=== PATIENT | male | born 1985 | race Two or more races ===

== ENCOUNTER 2017-04-26 08:02 | Emergency (ER) | payer OTHER ==
[2017-04-26 08:23] VITALS: TEMP 98.2; BMI 27.6
[2017-04-26] MEDS ORDERED: ONDANSETRON 4 MG/2 ML VIAL IVPUSH ONE (08:36)
[2017-04-26] MEDS ORDERED: SODIUM CHLORIDE 1,000 ML IV STA (08:36)
[2017-04-26] MEDS ORDERED: PANTOPRAZOLE SODIUM 40 MG in SODIUM CHLORIDE 100 ML IVPB ONE (08:39)
[2017-04-26] MEDS ORDERED: PANTOPRAZOLE SODIUM 100 ML IVPB ONE (08:55)
[2017-04-26] MEDS ORDERED: ONDANSETRON 4 MG/2 ML VIAL ONE (08:55)
--- NOTE | 2017-04-26 08:57 | PDOC ---
History of Present Illness - General Chief Complaint: Vomiting/Diarrhea Stated Complaint: VOMITING Time Seen by Provider: 04/26/17 08:33 History Source: Patient Exam Limitations: No Limitations - History of Present Illness Travel History: No Initial Comments: 04/26/17 08:57 31-year-old male with history of hypertension and kidney transplant 2 currently on tacromilus presents to the ED with complaints of sudden onset of nausea followed by vomiting and diarrhea. Patient states symptoms began around 2 :30 and have continued since. Patient currently denies headache, dizziness but does state feels dehydrated. Patient denies lower abdominal pain but does complain of epigastric pain. Patient denies recent travel, recent illness or recent change in medications. Patient states last night had some chicken he purchased from the store and then prepared it but states did not wash his hands after handling the raw chicken and then he ate. Patient denies recent sick contacts. Timing/Duration: reports: intermittent Quality: reports: moderate, burning, cramping, sharpness Abdominal Pain Onset Location: reports: epigastric Pain Radiation: reports: no radiation Activities at Onset: reports: none Aggravating Factors: improves with: None Alleviating Factors: improves with: None Past History - Past Medical History Allergies/Adverse Reactions: Allergies Allergy/AdvReac Type Severity Reaction Status Date / Time No Known Allergies Allergy Verified 04/26/17 08:16 Home Medications: Ambulatory Orders Amlodipine Besylate 5 mg PO BID 04/26/17 Carvedilol 25 mg PO BID 04/26/17 Cholecalciferol (Vitamin D3) [Vitamin D3] 1,000 unit PO HS 04/26/17 Fenofibrate Nanocrystallized [Fenofibrate] 48 mg PO HS 04/26/17 Mycophenolate Mofetil 1,000 mg PO BID 04/26/17 Prednisone 5 mg PO DAILY 04/26/17 Tacrolimus [Astagraf Xl] 0.5 mg PO BID 04/26/17 HTN: Yes Other medical history: KIDNEY FAILURE, TRANSPLANT X 2 - Immunization History Immunization Up to Date: Yes - Suicide/Smoking/Psychosocial Hx Smoking History: Never smoked Have you smoked in the past 12 months: No Hx Alcohol Use: No Drug/Substance Use Hx: No Substance Use Type: None Patient Lives Alone: No Lives with/in: spouse/SO Review of Systems - Review of Systems Able to Perform ROS?: Yes Constitutional: Yes: Symptoms Reported, Weakness HEENTM: No: Symptoms Reported Respiratory: No: Symptoms reported Cardiac (ROS): No: Symptoms Reported ABD/GI: Yes: Diarrhea, Nausea, Vomiting, Abdominal cramping : No: Symptoms Reported Musculoskeletal: No: Symptoms Reported Integumentary: No: Symptoms Reported Neurological: Yes: Weakness. No: Dizziness *Physical Exam - Vital Signs Last Vital Signs Temp Pulse Resp BP Pulse Ox 98.2 F 81 20 131/83 100 04/26/17 08:17 04/26/17 08:17 04/26/17 08:17 04/26/17 08:17 04/26/17 08:17 - Physical Exam General Appearance: Yes: Nourished, Appropriately Dressed. No: Apparent Distress HEENT: positive: Pharynx Normal. negative: Pale Conjunctivae Neck: positive: Supple Respiratory/Chest: positive: Lungs Clear, Normal Breath Sounds. negative: Respiratory Distress, Accessory Muscle Use Cardiovascular: positive: Regular Rhythm, Regular Rate. negative: Murmur Gastrointestinal/Abdominal: positive: Soft, Tenderness (epigastric). negative: Normal Bowel Sounds, Distended, Guarding, Rebound, Mass Extremity: positive: Normal Capillary Refill. negative: Pedal Edema Integumentary: positive: Normal Color, Warm, Moist Neurologic: positive: Motor Strength 5/5 (ambulatory) ED Treatment Course - LABORATORY CBC & Chemistry Diagram: 04/26/17 09:03 04/26/17 09:03 Medical Decision Making - Medical Decision Making 04/26/17 09:08 Patient was sudden onset of nausea vomiting diarrhea this morning at 2:30 AM. Patient exam have epigastric tenderness and states did have chicken he brought at a supermarket then prepared it. Apparently did not wash his hands. Patient states eating around 10 PM and went to bed. Patient concerning for gastroenteritis versus versus electrolyte imbalance. Patient ordered for labs, urine, antiemetics, IV fluids and ppi 04/26/17 12:30 Laboratory Tests 04/26/17 04/26/17 04/26/17 09:03 09:03 09:03 WBC 12.9 H Hgb 15.2 D Hct 46.6 D MCV 79.3 L Plt Count 214 Neutrophils % 88.8 H Sodium 137 Potassium 4.0 Chloride 102 Carbon Dioxide 25 Anion Gap 10 BUN 15 D Creatinine 1.1 D Creat Clearance w eGFR > 60 Random Glucose 329 H* D Magnesium 1.8 Total Bilirubin 0.6 D AST 26 ALT 63 D Lipase 04/26/17 09:06 WBC Hgb Hct MCV Plt Count Neutrophils % Sodium Potassium Chloride Carbon Dioxide Anion Gap BUN Creatinine Creat Clearance w eGFR Random Glucose Magnesium Total Bilirubin AST ALT Lipase 106 Awaiting urine specimen. Patient states feeling better. 04/26/17 14:41 Laboratory Tests 04/26/17 13:55 Urine Glucose (UA) 3+ H Urine Blood 1+ H Urine Nitrite Negative Urine Urobilinogen Negative *DC/Admit/Observation/Transfer Diagnosis at time of Disposition: Nausea and vomiting Qualifiers: Vomiting type: unspecified Vomiting Intractability: non-intractable Qualified Code(s): R11.2 - Nausea with vomiting, unspecified Diarrhea Qualifiers: Diarrhea type: unspecified type Qualified Code(s): R19.7 - Diarrhea, unspecified - Discharge Dispostion Disposition: HOME Condition at time of disposition: Improved - Referrals Referrals: STAFF,NOT ON [Primary Care Provider] - - Patient Instructions Printed Discharge Instructions: Nausea and Vomiting-Adult, DI for Diarrhea and Traveler's Diarrhea -- Adult Additional Instructions: Follow bland diet for the next 3 days and drink small sips of fluid throughout the day. Please take Zofran as needed for nausea and if symptoms worsen despite above recommendations please return to the nearest emergency room.
[2017-04-26 09:14] LABS: BASOPHIL 0.3 % (0-2.0); EOSINOPHIL 0.7 % (0-4.5); MCH 25.9 pg (25.7-33.7); MCHC 32.6 g/dl (32.0-35.9); MEAN CELL VOLUME 79.3 fl (80-96); MEAN PLT VOLUME 8.3 fl (7.5-11.1); NEUTROPHILS 88.8 % (42.8-82.8); PLATELET COUNT 214 K/MM3 (134-434); RDW 14.5 % (11.9-15.9); WHITE BLOOD COUNT 12.9 K/mm3 (4.0-10.0)
[2017-04-26 09:52] LABS: ALBUMIN 4.3 g/dl (3.4-5.0); ALK PHOS 184 U/L (45-117); ANION GAP 10 (8-16); BILIRUBIN,TOTAL 0.6 mg/dL (0.2-1.0); CALCIUM 9.4 mg/dL (8.5-10.1); CO2 25 mmol/L (21-32); CREATININE 1.1 mg/dL (0.7-1.3); SGOT/AST 26 U/L (15-37); SGPT/ALT 63 U/L (12-78); TOT PROT 7.4 g/dl (6.4-8.2)
[2017-04-26 10:34] LABS: GLUCOSE,RANDOM 329 mg/dL (74-106)
--- NOTE | 2017-04-26 10:38 | EKG ---
Test Reason : Blood Pressure : / mmHG Vent. Rate : 077 BPM Atrial Rate : 077 BPM P-R Int : 142 ms QRS Dur : 086 ms QT Int : 362 ms P-R-T Axes : 043 035 123 degrees QTc Int : 409 ms NORMAL SINUS RHYTHM T WAVE ABNORMALITY, CONSIDER LATERAL ISCHEMIA ABNORMAL ECG WHEN COMPARED WITH ECG OF 30-JUN-2015 19:36, NO SIGNIFICANT CHANGE WAS FOUND Confirmed by EDER BONNER MD ([id number]) on 04/26/2017 10:38:44 AM Referred By: Confirmed By:EDER BONNER MD
[2017-04-26 14:28] LABS: URINE APPEARANCE CLEAR; URINE BILIRUBIN NEGATIVE (NEGATIVE); URINE BLOOD 1+ (NEGATIVE); URINE COLOR LTYELLOW; URINE GLUCOSE (UA) 3+ (NEGATIVE); URINE KETONE NEGATIVE (NEGATIVE); URINE LEUK ESTERASE NEGATIVE (NEGATIVE); URINE NITRITE NEGATIVE (NEGATIVE); URINE PROTEIN NEGATIVE (NEGATIVE); URINE UROBILINOGEN NEGATIVE mg/dL (0.2-1.0)
[2017-04-26 14:59] VITALS: BP 126/77; PULSE 75
[2017-04-26 16:52] LABS: URINE RBC 1 /hpf (0-3)
== END 2017-04-26 14:59 | disposition home or self-care (01) ==
LOC: JER 08:02
PROC: 3E033GC Introduction of Other Therapeutic Substance into Peripheral Vein, Percutaneous Approach (ICD-10-PCS; principal; 2017-04-26)
PROC: 3E0337Z Introduction of Electrolytic and Water Balance Substance into Peripheral Vein, Percutaneous Approach (ICD-10-PCS; 2017-04-26)
DX: R19.7 Diarrhea, unspecified (principal); R11.2 Nausea with vomiting, unspecified; Z94.0 Kidney transplant status; I10 Essential (primary) hypertension
CPT/HCPCS: 36415; 80053; 81003; 81015; 83690; 83735; 85025; 87086; 93005; 93010; 99282-25

== ENCOUNTER 2018-08-18 07:25 | Inpatient (IN) | payer OTHER ==
[2018-08-18] MEDS ORDERED: SODIUM CHLORIDE 1,000 ML IV STA ×2 (07:39→08:54)
[2018-08-18] MEDS ORDERED: ACETAMINOPHEN 1000 MG/100 ML VIAL (NON FORMULARY) IVPB ONE (07:39)
[2018-08-18] MEDS ORDERED: ONDANSETRON 4 MG/2 ML VIAL IVPB ONE (07:40)
--- NOTE | 2018-08-18 07:45 | PDOC ---
History of Present Illness - General Chief Complaint: Nausea/Vomiting Stated Complaint: NAUSEA VOMITING Time Seen by Provider: 08/18/18 07:29 - History of Present Illness Initial Comments: 08/18/18 07:45 33 M with h/o ESRD s/p kidney transplant x 2, HTN, presenting to ED with N+V+D. Pt states that his symptoms started 2 days ago. Endorses subjective fevers but no measured temps. States that he is having about 20 episodes of diarrhea per day, as well as several episodes of NBNB emesis. Pt endorses lightheadedness and the feeling that he is going to faint but denies any syncopal episodes. Also endorses lower abdominal cramping. Denies any dysuria. Denies CP/SOB. States that he is still making normal amount of urine. Past History - Past Medical History Allergies/Adverse Reactions: Allergies Allergy/AdvReac Type Severity Reaction Status Date / Time No Known Allergies Allergy Verified 08/18/18 07:30 Home Medications: Ambulatory Orders Amlodipine Besylate 5 mg PO BID 04/26/17 Carvedilol 25 mg PO BID 04/26/17 Cholecalciferol (Vitamin D3) [Vitamin D3] 1,000 unit PO HS 04/26/17 Fenofibrate Nanocrystallized [Fenofibrate] 48 mg PO HS 04/26/17 Mycophenolate Mofetil 1,000 mg PO BID 04/26/17 Ondansetron HCl [Zofran] 4 mg PO TID PRN #12 tablet 04/26/17 Prednisone 5 mg PO DAILY 04/26/17 Tacrolimus [Astagraf Xl] 0.5 mg PO BID 04/26/17 COPD: No Diabetes: Yes HTN: Yes - Immunization History Immunization Up to Date: Yes - Suicide/Smoking/Psychosocial Hx Smoking History: Never smoked Have you smoked in the past 12 months: No Hx Alcohol Use: No Drug/Substance Use Hx: No Substance Use Type: None Review of Systems - Review of Systems Comments:: 08/18/18 07:49 GENERAL/CONSTITUTIONAL: + fevers, + lightheaded HEAD, EYES, EARS, NOSE AND THROAT: No change in vision. No ear pain or discharge. No sore throat. CARDIOVASCULAR: No chest pain, no shortness of breath, no loss of consciousness RESPIRATORY: No cough, wheezing, or hemoptysis. GASTROINTESTINAL: + abdominal pain + nausea, vomiting, and diarrhea. GENITOURINARY: No dysuria, frequency, or change in urination. MUSCULOSKELETAL: No joint or muscle swelling or pain. No neck or back pain. SKIN: No rash NEUROLOGIC: No vertigo, no change in strength/sensation. ENDOCRINE: No increased thirst. No abnormal weight change. HEMATOLOGIC/LYMPHATIC: No anemia, easy bleeding, or history of blood clots. ALLERGIC/IMMUNOLOGIC: No hives or skin allergy. *Physical Exam - Vital Signs Last Vital Signs Temp Pulse Resp BP Pulse Ox 98.4 F 121 H 18 95/72 99 08/18/18 07:30 08/18/18 07:30 08/18/18 07:30 08/18/18 07:30 08/18/18 07:30 - Physical Exam Comments: 08/18/18 07:50 "GENERAL: Awake, alert, and fully oriented, in no acute distress. HEAD: No signs of trauma EYES: PERRLA, EOMI, sclera anicteric, conjunctiva clear ENT: Auricles normal inspection, hearing grossly normal, nares patent, oropharynx clear without exudates. Moist mucosa NECK: Nontender, no stepoffs, Normal ROM, supple, no lymphadenopathy, JVD, or masses LUNGS: Breath sounds equal, clear to auscultation bilaterally. No wheezes, and no crackles HEART: Regular rate and rhythm, normal S1 and S2, no murmurs, rubs or gallops ABDOMEN: Soft, mild diffuse TTP, normoactive bowel sounds. No guarding, no rebound. No masses EXTREMITIES: Normal range of motion, no edema. No clubbing or cyanosis. No cords, erythema, or tenderness NEUROLOGICAL: Cranial nerves II through XII intact. 5/5 strength and sensation in all extremities, Normal speech, normal gait, normal cerebellar function SKIN: Warm, Dry, normal turgor, no rashes or lesions noted. Moderate Sedation - Procedure Monitoring Vital Signs: Procedure Monitoring Vital Signs Temperature 98.4 F 08/18/18 07:30 Pulse Rate 121 H 08/18/18 07:30 Respiratory Rate 18 08/18/18 07:30 Blood Pressure 95/72 08/18/18 07:30 O2 Sat by Pulse Oximetry (%) 99 08/18/18 07:30 ED Treatment Course - LABORATORY CBC & Chemistry Diagram: 08/18/18 07:40 08/18/18 07:40 - RADIOLOGY Radiology Studies Ordered: Category Date Time Status CHEST X-RAY PORTABLE* [RAD] Stat Radiology 08/18/18 07:38 Ordered Medical Decision Making - Critical Care Time Total Critical Care Time (minutes): 60 Critical Care Statement: The care of this patient involved high complexity decision making to prevent further life threatening deterioration of the patient 's condition and/or to evaluate & treat vital organ system(s) failure or risk of failure. - Medical Decision Making 08/18/18 08:02 33 M with h/o kidney transplant x2 on prednisone and tacro, presenting with subjective fevers, N+V+D, and abdominal pain. Pt hypotensive and tachycardic in ED, concerning for sepsis. Source unclear at this time. Will also w/u for rejection. - Labs, cultures - CXR, UA - US kidney txplant - Tacro level - IVF 08/18/18 08:14 EKG obtained showing sinus tachycardia with 1mm ST elevation in lead III, sub- mm elevation in II or aVF. + depressions in I and aVL. Does NOT meet STEMI criteria. Pt denies any chest pain/SOB. Suspect that EKG changes are 2/2 demand in the context of likely sepsis. 08/18/18 08:52 Troponin negative Lactate >3 Given immune compromised status, will cover broadly with vanc and zosyn No neutropenia *DC/Admit/Observation/Transfer Diagnosis at time of Disposition: Sepsis - Discharge Dispostion Decision to Admit order: Yes - Referrals - Patient Instructions - Post Discharge Activity - Attestations Physician Attestion: 08/18/18 11:03 I, Dr. Casey Steel MD, attest that this document has been prepared under my direction and personally reviewed by me in its entirety. I further attest, that it accurately reflects all work, treatment, procedures and medical decision -making performed by me.
[2018-08-18] MEDS ORDERED: ACETAMINOPHEN INJECTION 100 ML IVPB ONE (07:58)
[2018-08-18] MEDS ORDERED: ONDANSETRON 4 MG/2 ML VIAL ONE (07:58)
[2018-08-18 08:07] LABS: VENOUS PC02 44.8 mmHg (38-52); VENOUS PH 7.28 (7.32-7.42); VENOUS PO2 25.1 mmHg (28-48)
[2018-08-18 08:09] LABS: BASO % 0.2 % (0-2.0); HEMATOCRIT 51.3 % (35.4-49); HEMOGLOBIN 17.4 GM/dL (11.7-16.9); LYMPH % 7.1 % (8-40); MCH 27.7 pg (25.7-33.7); MCHC 33.9 g/dl (32.0-35.9); MEAN CELL VOLUME 81.7 fl (80-96); MONO % 5.2 % (3.8-10.2); NEUT % 87.5 % (42.8-82.8); PLATELET COUNT 281 K/MM3 (134-434); RBC 6.28 M/mm3 (4.00-5.60); RDW 14.7 % (11.9-15.9); WHITE BLOOD COUNT 12.1 K/mm3 (4.0-10.0)
[2018-08-18 08:38] LABS: INR 1.1 (0.83-1.09)
[2018-08-18 08:40] LABS: ACTIVATED PTT 36.9 SECONDS (25.2-36.5)
[2018-08-18] MEDS ORDERED: PIPERACILLIN/TAZOB 4.5 GM 4.5 GM/100 ML BAG IVPB ONE ×2 (08:51→08:58)
[2018-08-18] MEDS ORDERED: VANCOMYCIN 1 GRAM (PRE-DOCKED) 1,000 MG/250 ML BAG IVPB ONE ×2 (08:51→08:58)
[2018-08-18 09:45] LABS: ALK PHOS 94 U/L (45-117); ANION GAP 20 MMOL/L (8-16); BILIRUBIN,TOTAL 1.4 mg/dL (0.2-1); BLOOD UREA NITROGEN 42 mg/dL (7-18); CALCIUM 10.6 mg/dL (8.5-10.1); CHLORIDE 96 mmol/L (98-107); CO2 16 mmol/L (21-32); CREATININE 3.9 mg/dL (0.55-1.3); GLUCOSE,RANDOM 272 mg/dL (74-106); POTASSIUM 3.7 mmol/L (3.5-5.1); SGOT/AST 32 U/L (15-37); SGPT/ALT 56 U/L (13-61); SODIUM 132 mmol/L (136-145); TOT PROT 9.6 g/dl (6.4-8.2)
--- NOTE | 2018-08-18 11:10 | HP ---
CHIEF COMPLAINT: " Diarrhoea, nausea, vomiting" Metal Tile Setter: Dr. Javon Olsen HISTORY OF PRESENT ILLNESS: Patient is a 33 year old male presented to the ED with the chief complaint of " Diarrhoea, nausea, vomiting". As per the patient, he was apparently well until 2 days ago, ate Salami Sunday night, went to bed, woke up after 6 hours with high grade fever (not measured) associated with chills and sweating. Then he developed abdominal pain, located in the epigastric area, 5/10 in intensity, non radiating, crampy in nature. It was associated with watery diarrhoea, about 20 episodes, greenish in color, no blood, no mucus. He started to feel weak, tired hence came in to the ED for further evaluation. En route, had one episode of NBNB vomiting. No sick contacts. Denies chest pain, sob, cough, palpitation, abdominal pain, nausea or vomiting. Bladder habit normal. Decreased appetite. Patient reports he has a h/o ESRD from hypertension was on HD in 2004, had renal transplant in 2006, got rejected and got another renal transplant in 2015. Since then he has been on Prednisone and immunosuppresants without any issues. Patient states he saw his gasoline tractor operator at [place] last week and was recommended to continue same home medications. ER course was notable for: (1) Afebrile, hypotensive 90/ 53 mmHg, Tachycardic 121, leukocytosis of 12.1, Lactic acid 3.7 (2) Abdominal/Pelvis CT (transplant): No acute pathology (3) EKG: NSR (4) IV Fluids, IV Vancomycin Recent Travel: None PAST MEDICAL HISTORY: Hypertension, ESRD s/p Kidney transplant twice (2006/2015 ) on prednisone and immunosuppresants PAST SURGICAL HISTORY: As mentioned above Social History: Smoking:Denies Alcohol:Denies Drugs: Denies Family History: Non contributory Allergies No Known Allergies Allergy (Verified 08/18/18 07:30) HOME MEDICATIONS: Home Medications Medication Instructions Recorded Amlodipine Besylate 5 mg PO BID 04/26/17 Carvedilol 25 mg PO BID 04/26/17 Cholecalciferol (Vitamin D3) 1,000 unit PO HS 04/26/17 [Vitamin D3] Fenofibrate Nanocrystallized 48 mg PO HS 04/26/17 [Fenofibrate] Mycophenolate Mofetil 1,000 mg PO BID 04/26/17 Ondansetron HCl [Zofran] 4 mg PO TID PRN #12 tablet 04/26/17 Prednisone 5 mg PO DAILY 04/26/17 Tacrolimus [Astagraf Xl] 0.5 mg PO BID 04/26/17 REVIEW OF SYSTEMS CONSTITUTIONAL: Absent: fever, chills, diaphoresis, generalized weakness, malaise, loss of appetite, weight change HEENT: Absent: rhinorrhea, nasal congestion, throat pain, throat swelling, difficulty swallowing, mouth swelling, ear pain, eye pain, visual changes CARDIOVASCULAR: Absent: chest pain, syncope, palpitations, irregular heart rate, lightheadedness , peripheral edema RESPIRATORY: Absent: cough, shortness of breath, dyspnea with exertion, orthopnea, wheezing, stridor, hemoptysis GASTROINTESTINAL: Present: abdominal pain, abdominal distension, nausea, vomiting, diarrhea, Absent: constipation, melena, hematochezia GENITOURINARY: Absent: dysuria, frequency, urgency, hesitancy, hematuria, flank pain, genital pain MUSCULOSKELETAL: Absent: myalgia, arthralgia, joint swelling, back pain, neck pain SKIN: Absent: rash, itching, pallor HEMATOLOGIC/IMMUNOLOGIC: Absent: easy bleeding, easy bruising, lymphadenopathy, frequent infections ENDOCRINE: Absent: unexplained weight gain, unexplained weight loss, heat intolerance, cold intolerance NEUROLOGIC: Absent: headache, focal weakness or paresthesias, dizziness, unsteady gait, seizure, mental status changes, bladder or bowel incontinence PSYCHIATRIC: Absent: anxiety, depression, suicidal or homicidal ideation, hallucinations. PHYSICAL EXAMINATION Vital Signs - 24 hr 08/18/18 08/18/18 08/18/18 07:30 09:24 09:58 Temperature 98.4 F Pulse Rate 121 H Pulse Rate [ 108 H Apical] Respiratory 18 Rate Blood Pressure 95/72 Blood Pressure 90/53 L [Right Arm] O2 Sat by Pulse 99 Oximetry (%) GENERAL: Young male, lying in bed, looks sick, Awake, alert, and fully oriented , in no acute distress. EYES:EOM intact, no pallor or icterus. EARS, NOSE, THROAT: Ears normal. Dry mucous membranes. NECK: Supple, no JVD LUNGS: B/L breath sounds equal, no added sounds. HEART: Regular rate and rhythm, normal S1 and S2 without murmur. ABDOMEN: Surgical scar angelica well healed , Soft, nontender, no organomegaly. MUSCULOSKELETAL: Normal range of motion at all joints. No bony deformities or tenderness. No CVA tenderness. UPPER EXTREMITIES: 2+ pulses, warm, well-perfused. No cyanosis. No clubbing. No peripheral edema. LOWER EXTREMITIES: 2+ pulses, warm, well-perfused. No calf tenderness. No peripheral edema. NEUROLOGICAL: No facial droop. Cranial nerves II-XII intact. Normal speech. Gait not observed. PSYCHIATRIC: Cooperative. Good eye contact. Appropriate mood and affect. SKIN: Warm, dry, normal turgor, no rashes or lesions noted, normal capillary refill. Laboratory Results - last 24 hr 08/18/18 08/18/18 08/18/18 07:40 07:40 07:40 WBC 12.1 H RBC 6.28 H Hgb 17.4 H Hct 51.3 H MCV 81.7 MCH 27.7 MCHC 33.9 RDW 14.7 Plt Count 281 D MPV 8.0 Absolute Neuts (auto) 10.6 H Neutrophils % 87.5 H Lymphocytes % 7.1 L D Monocytes % 5.2 Eosinophils % 0.0 D Basophils % 0.2 Nucleated RBC % 0 PT with INR 13.00 INR 1.10 H PTT (Actin FS) 36.9 H VBG pH POC VBG pCO2 POC VBG pO2 Mixed VBG HCO3 Sodium Cancelled Potassium Cancelled Chloride Cancelled Carbon Dioxide Cancelled Anion Gap Cancelled BUN Cancelled Creatinine Cancelled Creat Clearance w eGFR Cancelled Random Glucose Cancelled Lactic Acid Calcium Cancelled Total Bilirubin Cancelled AST Cancelled ALT Cancelled Alkaline Phosphatase Cancelled Troponin I Total Protein Cancelled Albumin Cancelled Influenza A (Rapid) Influenza B (Rapid) 08/18/18 08/18/18 08/18/18 07:40 07:40 07:47 WBC RBC Hgb Hct MCV MCH MCHC RDW Plt Count MPV Absolute Neuts (auto) Neutrophils % Lymphocytes % Monocytes % Eosinophils % Basophils % Nucleated RBC % PT with INR INR PTT (Actin FS) VBG pH 7.28 L POC VBG pCO2 44.8 POC VBG pO2 25.1 L Mixed VBG HCO3 20.2 Sodium 132 L Potassium 3.7 Chloride 96 L Carbon Dioxide 16 L Anion Gap 20 H BUN 42 H Creatinine 3.9 H Creat Clearance w eGFR 17.68 Random Glucose 272 H Lactic Acid 3.7 H* Calcium 10.6 H Total Bilirubin 1.4 H AST 32 ALT 56 Alkaline Phosphatase 94 Troponin I < 0.02 Total Protein 9.6 H Albumin 5.0 Influenza A (Rapid) Influenza B (Rapid) 08/18/18 08/18/18 10:00 10:00 WBC RBC Hgb Hct MCV MCH MCHC RDW Plt Count MPV Absolute Neuts (auto) Neutrophils % Lymphocytes % Monocytes % Eosinophils % Basophils % Nucleated RBC % PT with INR INR PTT (Actin FS) VBG pH POC VBG pCO2 POC VBG pO2 Mixed VBG HCO3 Sodium Potassium Chloride Carbon Dioxide Anion Gap BUN Creatinine Creat Clearance w eGFR Random Glucose Lactic Acid 1.5 Calcium Total Bilirubin AST ALT Alkaline Phosphatase Troponin I Total Protein Albumin Influenza A (Rapid) Negative Influenza B (Rapid) Negative Abdominal/Pelvis CT: 1. Diffuse fatty infiltration of the liver. 2. Atrophic [place] kidneys with hyperdense left renal cyst. 3. Atrophic right renal transplant within the right hemipelvis. 4. Morphologically normal left renal transplant within the left hemipelvis. 5. No evidence of acute pathology within the abdomen or pelvis. Please see above discussion. ASSESSMENT/PLAN: Patient is a 33 year old male with significant past medical history of Hypertension, ESRD s/p Kidney transplant twice () on prednisone and immunosuppresants presented to the ED with the chief complaint of " Diarrhoea, nausea, vomiting". # Severe sepsis likely secondary to gastroenteritis Tachycardic 121, leukocytosis of 12.1, Lactic acid 3.7, diarrhoea x 20 episodes. Could have been aggravated when he ate Salami. Was given IV fluids in the ED and lactic acid improved with IV hydration. Lactic acid now 1.5 Was given IV Vanc in the ED Abd/Pelvis CT showed no acute pathology. Admit to Med-Surg/Inpatient Continue IV NS @ 100 mls/hr Start IV Flagyl 500mg Q8H Blood culture pending If worsening, will send stool studies. # ESRD s/p Kidney transplant twice () on prednisone and immunosuppresants Seen by his gasoline tractor operator last week, no change in current medications. Continue Fenofibrate 48 mg HS, Mofetil 1000 mg BID, Tacrolimus 0.5 mg BID and Prednisone 5 mg Daily Tacrolimus level pending. creatinine is 3.9, will repeat this afternoon, creatinine 1.1 in 2017. Creatinine level unknown since 2017 # Polycythemia H/H: 17.4/51.2 could be from dehydration. Likely to improve with IV fluids. Repeat CBC in AM # Elevated T. bili AST/ALT normal. Will repeat it in AM and Direct bili. If it is rising, would consider ultrasound of the liver. # Hypertension-was hypotensive on admission Likely from dehydration and gastroenteritis Continue Amlodipine 5mg BID starting this evening # FEN IV NS @ 100 mls/hr Electrolytes WNL Renal diet # Prophylaxis For DVT: On Heparin 5000 IU sq TID For GI: IV Protonix 40mg Daily # Code Status: Full Code # Dispo: Admit to Med/Surg. Duration of stay unknown. Illness, Investigation and Plan of care explained to the patient. He verbalized understanding. Case discussed with Dr. Marshall. Visit type - Emergency Visit Emergency Visit: Yes ED Registration Date: 08/18/18 Care time: The patient presented to the Emergency Department on the above date and was hospitalized for further evaluation of their emergent condition. - New Patient This patient is new to me today: Yes Date on this admission: 08/18/18 - Critical Care Critical Care patient: No
[2018-08-18] MEDS: SODIUM CHLORIDE 1,000 ML IV SCH ×4 (11:29→23:30)
--- NOTE | 2018-08-18 15:29 | PN ---
Teaching Attending Note Name of Resident: Sharlene Humphries ATTENDING PHYSICIAN STATEMENT I saw and evaluated the patient. I reviewed the resident's note and discussed the case with the resident. I agree with the resident's findings and plan as documented. SUBJECTIVE: OBJECTIVE: aaox3 s1 and s2 lungs CTA good air entyr abdominal tenderness noted. l ASSESSMENT AND PLAN: Patient is a 33 year old male with significant past medical history of Hypertension, ESRD s/p Kidney transplant twice () on prednisone and immunosuppresants presented to the ED with the chief complaint of " Diarrhoea, nausea, vomiting". # SIRS with sepsis likely secondary to gastroenteritis Was given IV fluids in the ED and lactic acid improved with IV hydration. Lactic acid now 1.5 Was given IV Vanc in the ED Admit to Med-Surg/Inpatient Continue IV NS @ 100 mls/hr Start IV metronidazole 500mg Q8H f/u with blood culture pending If worsening, will send stool studies. # ESRD s/p Kidney transplant twice () on prednisone and immunosuppresants Seen by his automotive customer experience advisor last week, no change in current medications. Continue Fenofibrate 48 mg HS, Mofetil 1000 mg BID, Tacrolimus 0.5 mg BID and Prednisone 5 mg Daily Tacrolimus level pending. creatinine is 3.9, will repeat in AM if it continues to rise, will request for renal consult. # Polycythemia H/H: 17.4/51.2 could be from dehydration. Likely to improve with IV fluids. Repeat CBC in AM # Elevated T. bili AST/ALT normal. Will repeat it in AM and Direct bili. If it is rising, would consider ultrasound of the liver. # Hypertension-was hypotensive on admission Likely from dehydration and gastroenteritis Continue Amlodipine 5mg BID starting this evening # FEN IV NS @ 100 mls/hr Electrolytes WNL Renal diet # Prophylaxis For DVT: On Heparin 5000 IU sq TID For GI: Not indicated Illness, Investigation and Plan of care explained to the patient. He verbalized understanding.
[2018-08-18] MEDS ORDERED: SODIUM CHLORIDE 1,000 ML IV SCH (15:40)
[2018-08-18 15:46] VITALS: BMI 27.9
[2018-08-18] MEDS: HEPARIN NA (PORCINE) 5,000 UNITS/ML 1ML VIAL SQ SCH ×2 (16:24→21:35)
[2018-08-18] MEDS: PANTOPRAZOLE SODIUM 40 MG VIAL IVPUSH SCH (16:24)
--- NOTE | 2018-08-18 16:28 | CON.NEP ---
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 He was seen by his faculty instructor last week and he had labs done 08/14 - Alcohol/Substance Use Hx Alcohol Use: No - Smoking History Smoking history: Never smoked Have you smoked in the past 12 months: No Home Medications - Allergies Allergies/Adverse Reactions: Allergies Allergy/AdvReac Type Severity Reaction Status Date / Time No Known Allergies Allergy Verified 08/18/18 07:30 - Home Medications Home Medications: Ambulatory Orders Amlodipine Besylate 5 mg PO BID 04/26/17 Carvedilol 25 mg PO BID 04/26/17 Cholecalciferol (Vitamin D3) [Vitamin D3] 1,000 unit PO HS 04/26/17 Fenofibrate Nanocrystallized [Fenofibrate] 48 mg PO HS 04/26/17 Mycophenolate Mofetil 1,000 mg PO BID 04/26/17 Ondansetron HCl [Zofran] 4 mg PO TID PRN #12 tablet 04/26/17 Prednisone 5 mg PO DAILY 04/26/17 Tacrolimus [Astagraf Xl] 0.5 mg PO BID 04/26/17 Nephrology Consult - Height Height: 5 ft 4 in - Weight Weight: 163 lb - BMI Body Mass Index (BMI): 27.9 - Lab Results CBC,BMP: CBC, BMP 08/18/18 07:40 08/18/18 07:40 Anion Gap: Anion Gap Anion Gap 20 MMOL/L (8-16) H 08/18/18 07:40 - Physical Examination Vital Signs: Vital Signs Temperature 99.9 F H 08/18/18 16:10 Pulse Rate 122 H 08/18/18 16:10 Respiratory Rate 24 H 08/18/18 16:10 Blood Pressure 128/73 08/18/18 16:10 O2 Sat by Pulse Oximetry (%) 96 08/18/18 15:55 Constitutional: Yes: Well Nourished, No Distress, Calm Eyes: Yes: WNL, Conjunctiva Clear, EOM Intact HENT: Yes: WNL, Atraumatic, Normocephalic Neck: Yes: WNL, Supple, Trachea Midline Respiratory: Yes: WNL, Regular, CTA Bilaterally Gastrointestinal: Yes: Soft, Tenderness (mild) Renal/: Yes: WNL Musculoskeletal: Yes: WNL Extremities: Yes: WNL Edema: No Integumentary: Yes: WNL Neurological: Yes: Lethargy Psychiatric: Yes: WNL, Alert, Oriented Assessment/Plan 33 y/o kidney transplant recipient x 3 years h/o esrd 2/2 HTN admitted with fever chills and diarrhea probable bowel infection profoundly dehydrated, hemoconcentrated, hypotensive DM his transplant faculty instructor Dr Ba Olsen [address] [place] [id number] [address] covered [address] Delroy Olsen we discussed patients history and presentation aware of the patient admission and plan In case you want to transfer, their transfer center telephone #[phone] hold BP meds amlodipine and carvedilol, and decrease Mycophenolate to 500 from 1000 bid continue same tacrolimus dose and prednisone consider stress steroid doses if remains hypotensive Plan- IV NS aggressively for next few hours monitor vital signs and response to fluids Adjust home meds: - hold Amlodipine Besylate 5 mg PO BID 04/26/17 -hold Carvedilol 25 mg PO BID 04/26/17 Cholecalciferol (Vitamin D3) [Vitamin D3] 1,000 unit PO HS 04/26/17 Fenofibrate Nanocrystallized [Fenofibrate] 48 mg PO HS 04/26/17 - reduce Mycophenolate Mofetil 500 mg from 1,000 mg PO BID 04/26/17 -Ondansetron HCl [Zofran] 4 mg PO TID PRN #12 tablet 04/26/17 -Continue Prednisone 5 mg PO DAILY 04/26/17 -Continue Tacrolimus [Astagraf Xl] 0.5 mg PO BID 04/26/17
[2018-08-18] MEDS ORDERED: PT OWN MED DRAWER 7, Y5N ONE ×2 (17:30→21:27)
[2018-08-18] MEDS ORDERED: INSULIN (NOVOLOG) ASPART 100 UNITS/ML 10ML VIAL ONE ×2 (17:31→21:27)
[2018-08-18] MEDS: INSULIN SLIDING SCALE (NOVOLOG) 1 VIAL SQ SCH ×2 (17:42→21:33)
--- NOTE | 2018-08-18 18:35 | EKG ---
Test Reason : Blood Pressure : / mmHG Vent. Rate : 114 BPM Atrial Rate : 114 BPM P-R Int : 136 ms QRS Dur : 076 ms QT Int : 322 ms P-R-T Axes : 051 066 098 degrees QTc Int : 443 ms SINUS TACHYCARDIA POSSIBLE LEFT ATRIAL ENLARGEMENT ST ABNORMALITY, ? MYOCARDIAL INJURY VS. PERICARDITIS ABNORMAL ECG WHEN COMPARED WITH ECG OF 26-APR-2017 09:10, T WAVE VARIATION VENT. RATE HAS INCREASED Confirmed by ALEXANDRA TOPETE MD ([id number]) on 08/18/2018 6:35:07 PM Referred By: Confirmed By:ALEXANDRA TOPETE MD
[2018-08-18] MEDS: ACETAMINOPHEN 325 MG TABLET (FP) PO PRN (19:30)
[2018-08-18] MEDS: CHOLECALCIFEROL (VITAMIN D3) 1,000 UNIT TABLET (FP) PO SCH (21:35)
[2018-08-18] MEDS: MYCOPHENOLATE MOFETIL 500 MG TABLET PO SCH (21:35)
[2018-08-18] MEDS ORDERED: amLODIPine BESYLATE 5 MG TABLET (FP) PO SCH (22:00)
[2018-08-18] MEDS ORDERED: MYCOPHENOLATE MOFETIL 500 MG TABLET PO SCH (22:00)
[2018-08-18] MEDS ORDERED: CARVEDILOL 25 MG TABLET (FP) PO SCH (22:00)
[2018-08-18] MEDS: TACROLIMUS 0.5 MG CAPSULE PO SCH (23:10)
[2018-08-18] MEDS: FENOFIBRIC ACID 45 MG CAP PO SCH (23:10)
[2018-08-18] MEDS ORDERED: ONDANSETRON 4 MG/2 ML VIAL IVPUSH ONE (23:41)
[2018-08-18 23:49] LABS: URINE APPEARANCE CLOUDY; URINE BILIRUBIN NEGATIVE (<2.0 mg/dL); URINE COLOR DKYELLOW; URINE GLUCOSE (UA) 1+ (NEGATIVE); URINE KETONE NEGATIVE (NEGATIVE); URINE LEUK ESTERASE NEGATIVE (NEGATIVE); URINE NITRITE NEGATIVE (NEGATIVE); URINE PROTEIN 3+ (NEGATIVE); URINE UROBILINOGEN NEGATIVE mg/dL (0.2-1.0)
[2018-08-18 23:59] LABS: EPI CELLS RARE /HPF (FEW); URINE BACTERIA MODERATE /hpf (NONE SEEN); URINE HYALINE CAST 3 /lpf; URINE MUCUS RARE
[2018-08-19] MEDS: ACETAMINOPHEN 325 MG TABLET (FP) PO PRN (01:30)
[2018-08-19] MEDS: SODIUM CHLORIDE 1,000 ML IV SCH (05:39)
[2018-08-19] MEDS: HEPARIN NA (PORCINE) 5,000 UNITS/ML 1ML VIAL SQ SCH ×3 (05:40→22:26)
[2018-08-19] MEDS: INSULIN SLIDING SCALE (NOVOLOG) 1 VIAL SQ SCH ×4 (06:10→22:16)
[2018-08-19 08:02] LABS: ALBUMIN 3.3 g/dl (3.4-5.0); ALK PHOS 58 U/L (45-117); ANION GAP 13 MMOL/L (8-16); BILIRUBIN,DIRECT 0.3 mg/dL (0.0-0.2); BLOOD UREA NITROGEN 48 mg/dL (7-18); CALCIUM 7.9 mg/dL (8.5-10.1); CHLORIDE 106 mmol/L (98-107); CO2 15 mmol/L (21-32); CREATININE 3.1 mg/dL (0.55-1.3); GLUCOSE,RANDOM 221 mg/dL (74-106); SGOT/AST 21 U/L (15-37); SGPT/ALT 35 U/L (13-61); SODIUM 133 mmol/L (136-145); TOT PROT 6.7 g/dl (6.4-8.2)
[2018-08-19 08:11] LABS: BASO % 0.9 % (0-2.0); HEMATOCRIT 40.2 % (35.4-49); HEMOGLOBIN 13.9 GM/dL (11.7-16.9); LYMPH % 7.1 % (8-40); MCH 27.7 pg (25.7-33.7); MCHC 34.6 g/dl (32.0-35.9); MEAN CELL VOLUME 79.9 fl (80-96); MEAN PLT VOLUME 8.4 fl (7.5-11.1); MONO % 6.8 % (3.8-10.2); NEUT % 85.2 % (42.8-82.8); PLATELET COUNT 180 K/MM3 (134-434); RBC 5.03 M/mm3 (4.00-5.60); RDW 14.2 % (11.9-15.9); WHITE BLOOD COUNT 6.6 K/mm3 (4.0-10.0)
[2018-08-19 08:21] LABS: POTASSIUM 2.9 mmol/L (3.5-5.1)
[2018-08-19] MEDS ORDERED: POTASSIUM CHLORIDE ORAL LIQUID 20 MEQ/15 ML PO ONE (08:41)
--- NOTE | 2018-08-19 08:45 | PN ---
Progress Note, Physician Chief Complaint: Nausea vomiting improved still c/o diarrhea History of Present Illness: 33 year old male with significant past medical history of Hypertension, ESRD s/ p Kidney transplant twice (2006/2015) on prednisone and immunosuppresants presented to the ED with the chief complaint of " Diarrhoea, nausea, vomiting" - Current Medication List Current Medications: Active Medications Acetaminophen (Tylenol -) 650 mg PO Q6H PRN PRN Reason: FEVER Last Admin: 08/19/18 01:30 Dose: 650 mg Cholecalciferol (Vitamin D3 -) 1,000 unit PO HS [facility] Last Admin: 08/18/18 21:35 Dose: 1,000 unit Fenofibric Acid (Trilipix -) 45 mg PO HS [facility] Last Admin: 08/18/18 23:10 Dose: 45 mg Heparin Sodium (Porcine) (Heparin -) 5,000 unit SQ TID [facility] Last Admin: 08/19/18 05:40 Dose: 5,000 unit Metronidazole (Flagyl 500mg Premixed Ivpb -) 500 mg in 100 mls @ 100 mls/hr IVPB Q8H-IV [facility] Last Admin: 08/19/18 01:03 Dose: 100 mls/hr Sodium Chloride (Normal Saline -) 1,000 mls @ 250 mls/hr IV ASDIR [facility] Stop: 08/20/18 19:39 Last Admin: 08/19/18 05:39 Dose: 250 mls/hr Insulin Aspart (Novolog Vial Sliding Scale -) 1 vial SQ ACHS [facility]; Protocol Last Admin: 08/19/18 06:10 Dose: 2 units Mycophenolate Mofetil (Cellcept -) 500 mg PO BID [facility] Last Admin: 08/18/18 21:35 Dose: 500 mg Pantoprazole Sodium (Protonix Iv) 40 mg IVPUSH DAILY [facility] Last Admin: 08/18/18 16:24 Dose: 40 mg Potassium Chloride (Potassium Chloride Oral Liquid) 40 meq PO ONCE ONE Stop: 08/19/18 08:42 Prednisone (Deltasone -) 5 mg PO DAILY [facility] Tacrolimus (Prograf) 0.5 mg PO BID [facility] Last Admin: 08/18/18 23:10 Dose: 0.5 mg - Objective Vital Signs: Vital Signs Temperature 98.3 F 08/19/18 05:41 Pulse Rate 110 H 08/19/18 05:41 Respiratory Rate 20 08/19/18 05:41 Blood Pressure 123/72 08/19/18 05:41 O2 Sat by Pulse Oximetry (%) 96 08/18/18 21:00 young man not in distress HEENT: Mm moist, no anemia, PERRLA EOMI NECK; No JVd No Bruit CHEST: CTA B/l XCVS: s1S2 R no m/g/r ABD: o distention mild tenderness EXT: Trace edemafeet , no calf tenderness, SENIOR COST ANALYST: AOx3 non focal Labs: CBC, BMP 08/19/18 06:30 08/19/18 06:30 INR, PTT INR 1.10 (0.83-1.09) H 08/18/18 07:40 Problem List - Problems (1) Diarrhea Assessment/Plan: due to viral etiology TWBC normal afebrile F/U clinically and stool w/u Code(s): R19.7 - DIARRHEA, UNSPECIFIED Qualifiers: Diarrhea type: unspecified type Qualified Code(s): R19.7 - Diarrhea, unspecified (2) Nausea and vomiting Assessment/Plan: Resolved will add Famotidine ad Zofran PRN Code(s): R11.2 - NAUSEA WITH VOMITING, UNSPECIFIED Qualifiers: Vomiting type: unspecified Vomiting Intractability: non-intractable Qualified Code(s): R11.2 - Nausea with vomiting, unspecified (3) Hypokalemia Assessment/Plan: Repleted Code(s): E87.6 - HYPOKALEMIA (4) Renal transplant recipient Assessment/Plan: Immuni supprresive dose adjusted will F/U with transplant Ctr Code(s): Z94.0 - KIDNEY TRANSPLANT STATUS (5) SCOOTER (acute kidney injury) Assessment/Plan: Due todehydration f/u BMP improving on IV Hydrtaion Code(s): N17.9 - ACUTE KIDNEY FAILURE, UNSPECIFIED
[2018-08-19] MEDS ORDERED: PT OWN MED DRAWER 7, Y5N ONE (09:48)
[2018-08-19] MEDS: MYCOPHENOLATE MOFETIL 500 MG TABLET PO SCH ×2 (09:59→22:27)
[2018-08-19] MEDS: PANTOPRAZOLE SODIUM 40 MG VIAL IVPUSH SCH (09:59)
[2018-08-19] MEDS: predniSONE 5 MG TABLET (UD) PO SCH (09:59)
[2018-08-19] MEDS: TACROLIMUS 0.5 MG CAPSULE PO SCH ×2 (09:59→22:27)
--- NOTE | 2018-08-19 10:05 | PN ---
Progress Note (short form) - Note Progress Note: Renal follow up for SCOOTER with Renal transplant Pt seen and examined at the bedside reports continued diarrhea and abd discomfort no fever, chills, N/V making urine no pain overt transplant Vital Signs Temperature 98.3 F 08/19/18 05:41 Pulse Rate 110 H 08/19/18 05:41 Respiratory Rate 20 08/19/18 05:41 Blood Pressure 123/72 08/19/18 05:41 O2 Sat by Pulse Oximetry (%) 96 08/18/18 21:00 Intake & Output 08/16/18 08/17/18 08/18/18 08/19/18 23:59 23:59 23:59 23:59 Intake Total 1795 Output Total 120 Balance 1675 Weight 73.936 kg NAD awake and alert dry MM Neck supple RRR CTA mild tenderness in and No LE edema CBC, BMP 08/19/18 06:30 08/19/18 06:30 Current Medications Acetaminophen (Tylenol -) 650 mg PO Q6H PRN PRN Reason: FEVER Last Admin: 08/19/18 01:30 Dose: 650 mg Cholecalciferol (Vitamin D3 -) 1,000 unit PO HS [facility] Last Admin: 08/18/18 21:35 Dose: 1,000 unit Fenofibric Acid (Trilipix -) 45 mg PO HS [facility] Last Admin: 08/18/18 23:10 Dose: 45 mg Heparin Sodium (Porcine) (Heparin -) 5,000 unit SQ TID [facility] Last Admin: 08/19/18 05:40 Dose: 5,000 unit Metronidazole (Flagyl 500mg Premixed Ivpb -) 500 mg in 100 mls @ 100 mls/hr IVPB Q8H-IV [facility] Last Admin: 08/19/18 01:03 Dose: 100 mls/hr Sodium Chloride (Normal Saline -) 1,000 mls @ 250 mls/hr IV ASDIR [facility] Stop: 08/20/18 19:39 Last Admin: 08/19/18 05:39 Dose: 250 mls/hr Insulin Aspart (Novolog Vial Sliding Scale -) 1 vial SQ ACHS [facility]; Protocol Last Admin: 08/19/18 06:10 Dose: 2 units Mycophenolate Mofetil (Cellcept -) 500 mg PO BID [facility] Last Admin: 08/18/18 21:35 Dose: 500 mg Pantoprazole Sodium (Protonix Iv) 40 mg IVPUSH DAILY [facility] Last Admin: 08/18/18 16:24 Dose: 40 mg Prednisone (Deltasone -) 5 mg PO DAILY [facility] Tacrolimus (Prograf) 0.5 mg PO BID [facility] Last Admin: 08/18/18 23:10 Dose: 0.5 mg 33 year old gentleman with hx of ESRD s/p Renal transplant x 2, Hypertension presented with complaints of Abd pain and diarrhea with SCOOTER. #SCOOTER in Renal transplant likely related to overt volume depletion #Renal transplant on immunosuppression #Diarrhea (non anion gap) #Metabolic acidosis #Hypokalemia Renal function improving with aggressive IVF hydration less likely that pt is having an acute rejection Continue Tacrolimus 0.5mg BID, Prednisone 5mg and Cellcept 500mg BID if clinical status not improving can hold cellcept Will change IVF to LR at 150cc per hour following completion of NS bolous x 3 Start oral sodium bicarb 1300mg BID Supplement oral K pending possible transfer to [facility] Continue supportive car
[2018-08-19] MEDS ORDERED: INSULIN (NOVOLOG) ASPART 100 UNITS/ML 10ML VIAL ONE (10:40)
[2018-08-19] MEDS: SODIUM BICARBONATE 650 MG TABLET PO SCH ×2 (11:40→22:26)
[2018-08-19 12:12] LABS: PLATELET ESTIMATE ADEQUATE
[2018-08-19] MEDS: LACTATED RINGERS SOLUTION 1,000 ML/1,000 ML INFUS.BAG IV SCH (14:48)
--- NOTE | 2018-08-19 16:07 | DS ---
Physical Examination Vital Signs: Vital Signs Temperature 98.5 F 08/19/18 14:58 Pulse Rate 101 H 08/19/18 14:58 Respiratory Rate 18 08/19/18 14:58 Blood Pressure 120/69 08/19/18 14:58 O2 Sat by Pulse Oximetry (%) 100 08/19/18 10:00 young man not in distress HEENT: Mm moist, no anemia, PERRLA EOMI NECK; No JVd No Bruit CHEST: CTA B/l XCVS: s1S2 R no m/g/r ABD: o distention mild tenderness EXT: Trace edema feet , no calf tenderness, TECHNICAL SERVICES MANAGER: AOx3 non focal Labs: CBC, BMP 08/19/18 06:30 08/19/18 06:30 Discharge Summary Reason For Visit: SEPSIS Current Active Problems SCOOTER (acute kidney injury) (Acute) Acute kidney injury superimposed on CKD (Acute) Hypokalemia (Acute) Renal transplant recipient (Acute) Sepsis (Acute) Hospital Course: 33 year old male with significant past medical history of Hypertension, ESRD s/ p Kidney transplant twice (2006/2015) on prednisone and immunosuppresants presented to the ED with the chief complaint of " Diarrhoea, nausea, vomiting "lab shows SCOOTER, patient renal functions are improving with IV Hydration , nausea , vomiting improved, patient is being transferred to [facility] transplant [facility] for further management. Condition: Fair - Instructions Disposition: TRANSFER ACUTE CARE/OTHER HOSP - Home Medications Comprehensive Discharge Medication List: Ambulatory Orders Amlodipine Besylate 5 mg PO BID 04/26/17 Carvedilol 25 mg PO BID 04/26/17 Cholecalciferol (Vitamin D3) [Vitamin D3] 1,000 unit PO HS 04/26/17 Fenofibrate Nanocrystallized [Fenofibrate] 48 mg PO HS 04/26/17 Ondansetron HCl [Zofran] 4 mg PO TID PRN #12 tablet 04/26/17 Prednisone 5 mg PO DAILY 04/26/17 Acetaminophen [Tylenol .Regular Strength -] 650 mg PO Q6H PRN tablet 08/19/18 Insulin Sliding Scale [Novolog Vial Sliding Scale -] 1 vial SQ ACHS units 08/19 Mycophenolate Mofetil [Cellcept -] 1,000 mg PO BID tablet 08/19/18 Mycophenolate Mofetil [Cellcept -] 500 mg PO BID tablet 08/19/18 Pantoprazole Sodium [Protonix IV] 40 mg IVPUSH DAILY vial 08/19/18 Sodium Bicarbonate - 1,300 mg PO BID tablet 08/19/18 Tacrolimus Anhydrous [Prograf] 0.5 mg PO BID capsule 08/19/18
[2018-08-19 19:00] LABS: ANION GAP 12 MMOL/L (8-16); BLOOD UREA NITROGEN 57 mg/dL (7-18); CALCIUM 8.2 mg/dL (8.5-10.1); CHLORIDE 105 mmol/L (98-107); CO2 14 mmol/L (21-32); CREATININE 3.8 mg/dL (0.55-1.3); MAGNESIUM 1.5 mg/dL (1.8-2.4); POTASSIUM 3.5 mmol/L (3.5-5.1); SODIUM 131 mmol/L (136-145)
[2018-08-19 19:01] LABS: GLUCOSE,RANDOM 302 mg/dL (74-106)
[2018-08-19] MEDS: CHOLECALCIFEROL (VITAMIN D3) 1,000 UNIT TABLET (FP) PO SCH (22:26)
[2018-08-19] MEDS: FENOFIBRIC ACID 45 MG CAP PO SCH (22:27)
[2018-08-20] MEDS: HEPARIN NA (PORCINE) 5,000 UNITS/ML 1ML VIAL SQ SCH ×3 (06:33→21:42)
[2018-08-20] MEDS: INSULIN SLIDING SCALE (NOVOLOG) 1 VIAL SQ SCH ×4 (06:33→21:45)
[2018-08-20 08:16] LABS: BASO % 0.2 % (0-2.0); EOS % 0.1 % (0-4.5); HEMATOCRIT 38.4 % (35.4-49); HEMOGLOBIN 13.5 GM/dL (11.7-16.9); LYMPH % 7.5 % (8-40); MCH 27.5 pg (25.7-33.7); MCHC 35.2 g/dl (32.0-35.9); MEAN CELL VOLUME 78.1 fl (80-96); MEAN PLT VOLUME 8.2 fl (7.5-11.1); MONO % 9.4 % (3.8-10.2); NEUT % 82.8 % (42.8-82.8); PLATELET COUNT 216 K/MM3 (134-434); RBC 4.92 M/mm3 (4.00-5.60); RDW 14.3 % (11.9-15.9); WHITE BLOOD COUNT 6.6 K/mm3 (4.0-10.0)
[2018-08-20 08:35] LABS: ANION GAP 13 MMOL/L (8-16); BLOOD UREA NITROGEN 60 mg/dL (7-18); CALCIUM 8.3 mg/dL (8.5-10.1); CHLORIDE 102 mmol/L (98-107); CO2 16 mmol/L (21-32); CREATININE 4.3 mg/dL (0.55-1.3); GLUCOSE,RANDOM 248 mg/dL (74-106); SODIUM 130 mmol/L (136-145)
[2018-08-20] MEDS ORDERED: PT OWN MED DRAWER 7, Y5N ONE ×2 (08:56→09:50)
[2018-08-20] MEDS ORDERED: POTASSIUM CHLORIDE TABS 20 MEQ TABLET.ER (FP) PO ONE (09:00)
[2018-08-20] MEDS: predniSONE 5 MG TABLET (UD) PO SCH (09:53)
[2018-08-20] MEDS: SODIUM BICARBONATE 650 MG TABLET PO SCH ×2 (09:53→21:42)
[2018-08-20] MEDS: PANTOPRAZOLE SODIUM 40 MG VIAL IVPUSH SCH (09:53)
[2018-08-20] MEDS: MYCOPHENOLATE MOFETIL 500 MG TABLET PO SCH ×2 (09:54→21:43)
[2018-08-20] MEDS: TACROLIMUS 0.5 MG CAPSULE PO SCH ×2 (09:54→21:44)
[2018-08-20] MEDS ORDERED: INSULIN (NOVOLOG) ASPART 100 UNITS/ML 10ML VIAL ONE ×2 (12:02→21:00)
[2018-08-20] MEDS: LACTATED RINGERS SOLUTION 1,000 ML/1,000 ML INFUS.BAG IV SCH ×2 (14:42→20:35)
[2018-08-20] MEDS ORDERED: POTASSIUM CHLORIDE ORAL LIQUID 20 MEQ/15 ML PO ONE (14:54)
--- NOTE | 2018-08-20 15:01 | PN ---
Teaching Attending Note Name of Resident: Ana Cristina Wright ATTENDING PHYSICIAN STATEMENT I saw and evaluated the patient. I reviewed the resident's note and discussed the case with the resident. I agree with the resident's findings and plan as documented. SUBJECTIVE:Patient feels improved less abd pain , diarrhea improving, nausea, vomiting resolved, afebrile. OBJECTIVE: Vital Signs Period Temp Pulse Resp BP Sys/Piper Pulse Ox Last 24 Hr 97.6 F-98.5 F 94-103 18-20 120-132/69-79 100 Young man not in distress HEENT: MM moist, no anemia, PERRLA EOMI NECK; No JVd No Bruit CHEST: CTA B/l XCVS: s1S2 R no m/g/r ABD: No distention mild tenderness EXT: Trace edema feet , no calf tenderness, SHEET METAL INSTALLER: AOx3 non focal Labs: CBC, BMP 08/20/18 06:45 08/20/18 06:45 ASSESSMENT AND PLAN:33 year old male with significant past medical history of Hypertension, ESRD s/p Kidney transplant twice (2006/2015) on prednisone and immunosupressive presented to the ED with the chief complaint of " Diarrhoea, nausea, vomiting"lab shows SCOOTER, patient renal functions are improving with IV Hydration , nausea, vomiting improved, patient is being transferred to [facility] transplant [facility] for further management. Patient nausea vomiting resolved, CBC trended normal, rising BUN/Creat is concerned only 2 BM today feels improved Plan; F/U Transfer Ctr to transfer him to [facility] as patient has accepted Most likely viral etiology Stool WBC -Ve C diff [pending but symptos are resolving SCOOTER; F/U renal recommendation, IV hydration,IP/Op chart F/U BMP Hypokalemia; F/U BMP replete k F/U Magnesium level. Problem List - Problems (1) Diarrhea Assessment/Plan: due to viral etiology TWBC normal afebrile F/U clinically and stool w/u Code(s): R19.7 - DIARRHEA, UNSPECIFIED Qualifiers: Diarrhea type: unspecified type Qualified Code(s): R19.7 - Diarrhea, unspecified (2) Nausea and vomiting Assessment/Plan: Resolved will add Famotidine ad Zofran PRN Code(s): R11.2 - NAUSEA WITH VOMITING, UNSPECIFIED Qualifiers: Vomiting type: unspecified Vomiting Intractability: non-intractable Qualified Code(s): R11.2 - Nausea with vomiting, unspecified (3) Hypokalemia Assessment/Plan: Repleted Code(s): E87.6 - HYPOKALEMIA (4) Renal transplant recipient Assessment/Plan: Immuno suppressive dose adjusted will F/U with transplant Ctr Code(s): Z94.0 - KIDNEY TRANSPLANT STATUS (5) SCOOTER (acute kidney injury) Assessment/Plan: Rising BUN/Creat , due to dehydration f/u BMP improving on IV Hydrtaion Code(s): N17.9 - ACUTE KIDNEY FAILURE, UNSPECIFIED
--- NOTE | 2018-08-20 16:41 | PN ---
<Ana Cristina Wright - Last Filed: 08/20/18 17:30> Physical Exam: SUBJECTIVE: Patient seen and examined at bedside. No acute events overnight. Denies f/c, n/v, abd pain, chest pain, sob. OBJECTIVE: Vital Signs Temperature 98.0 F 08/20/18 14:50 Pulse Rate 89 08/20/18 14:50 Respiratory Rate 20 08/20/18 14:50 Blood Pressure 142/87 08/20/18 14:50 O2 Sat by Pulse Oximetry (%) 100 08/19/18 21:00 GENERAL: AAOx3. Pleasant. HEENT: AT/NC. EOMI. KIRSTY. Moist mucus membranes. NECK: Trachea midline, full range of motion, supple. LUNGS: CTA B/L. No wheezes/crackles noted. HEART: RRR. Normal S1, S2. No wheezes noted. ABDOMEN: Soft ND. Mild TTP. +BS in all 4Q's. EXTREMITIES: 2+ pulses, warm, well-perfused, no edema. NEUROLOGICAL: Cranial nerves II through XII grossly intact. Normal speech, gait not observed. PSYCH: Normal mood, normal affect. SKIN: Warm, dry, normal turgor, no rashes or lesions noted CBC, BMP 08/20/18 06:45 08/20/18 06:45 Active Medications Acetaminophen (Tylenol -) 650 mg PO Q6H PRN PRN Reason: FEVER Last Admin: 08/19/18 01:30 Dose: 650 mg Cholecalciferol (Vitamin D3 -) 1,000 unit PO HS [facility] Last Admin: 08/19/18 22:26 Dose: 1,000 unit Fenofibric Acid (Trilipix -) 45 mg PO HS [facility] Last Admin: 08/19/18 22:27 Dose: 45 mg Heparin Sodium (Porcine) (Heparin -) 5,000 unit SQ TID [facility] Last Admin: 08/20/18 14:41 Dose: 5,000 unit Metronidazole (Flagyl 500mg Premixed Ivpb -) 500 mg in 100 mls @ 100 mls/hr IVPB Q8H-IV [facility] Last Admin: 08/20/18 09:53 Dose: 100 mls/hr Sodium Chloride (Normal Saline -) 1,000 mls @ 250 mls/hr IV ASDIR [facility] Stop: 08/20/18 19:39 Last Admin: 08/19/18 05:39 Dose: 250 mls/hr Lactated Ringer's (Lactated Ringers Solution) 1,000 ml in 1,000 mls @ 125 mls/ hr IV ASDIR [facility] Last Admin: 08/20/18 14:42 Dose: 125 mls/hr Insulin Aspart (Novolog Vial Sliding Scale -) 1 vial SQ ACHS [facility]; Protocol Last Admin: 08/20/18 12:34 Dose: 2 units Mycophenolate Mofetil (Cellcept -) 500 mg PO BID [facility] Last Admin: 08/20/18 09:54 Dose: 500 mg Pantoprazole Sodium (Protonix Iv) 40 mg IVPUSH DAILY [facility] Last Admin: 08/20/18 09:53 Dose: 40 mg Prednisone (Deltasone -) 5 mg PO DAILY [facility] Last Admin: 08/20/18 09:53 Dose: 5 mg Sodium Bicarbonate (Sodium Bicarbonate -) 1,300 mg PO BID [facility] Last Admin: 08/20/18 09:53 Dose: 1,300 mg Tacrolimus (Prograf) 0.5 mg PO BID [facility] Last Admin: 08/20/18 09:54 Dose: 0.5 mg CONSULTS: Nephro- Dr. Sampson IMAGING: * Abdominal/Pelvis CT: 1. Diffuse fatty infiltration of the liver. 2. Atrophic [place] kidneys with hyperdense left renal cyst. 3. Atrophic right renal transplant within the right hemipelvis. 4. Morphologically normal left renal transplant within the left hemipelvis. 5. No evidence of acute pathology within the abdomen or pelvis. Please see above discussion. ASSESSMENT/PLAN: 33M with significant past medical history of Hypertension, ESRD s/p Kidney transplant twice () on prednisone and immunosuppresants presented to the ED with the chief complaint of " Diarrhoea, nausea, vomiting". # Severe sepsis likely secondary to gastroenteritis; Resolved. -Most likely viral etiology Stool WBC -Ve C diff pending but symptoms are resolving -BCx neg x48h, Stool gram stain neg; Stool cx and Cdiff pending -Flagyl 500 mg Q8H IVPB (started 08/18) # ESRD s/p Kidney transplant twice () on prednisone and immunosuppresants -Seen by his counselor/art therapist last week, no change in current medications. Last known Cr by pt's nephro usually wnl -Continue Fenofibrate 48 mg HS, Mofetil 1000 mg BID, Tacrolimus 0.5 mg BID and Prednisone 5 mg Daily -Per nephro, pt noted to have fluctuating Cr values with corresponds to continued volume loss from diarrhea, will intensify IVF resuscitation -Continue sodium bicarb 1300mg BID -if renal function continues to decline will contact primary counselor/art therapist at [facility] again and request transfer. # Polycythemia -H/H: 17.4/51.2 could be from dehydration. Likely to improve with IV fluids. -Repeat CBC in AM # Elevated T. bili -AST/ALT normal. Will repeat it in AM and Direct bili. If it is rising, would consider ultrasound of the liver. # Hypertension-was hypotensive on admission -Likely from dehydration and gastroenteritis -Continue Amlodipine 5mg BID starting this evening # FEN -IV NS @ 100 mls/hr -Electrolytes WNL -Renal diet # Prophylaxis -For DVT: On Heparin 5000 IU sq TID -For GI: IV Protonix 40mg Daily # Dispo: -cont to Med/Surg -full code Visit type - Emergency Visit Emergency Visit: Yes ED Registration Date: 08/18/18 Care time: The patient presented to the Emergency Department on the above date and was hospitalized for further evaluation of their emergent condition. - New Patient This patient is new to me today: Yes Date on this admission: 08/20/18 - Critical Care Critical Care patient: No <Kristin Sanchez - Last Filed: 08/23/18 12:16> Physical Exam: SUBJECTIVE: Patient seen and examined OBJECTIVE: GENERAL: The patient is awake, alert, and fully oriented, in no acute distress. HEAD: Normal with no signs of trauma. EYES: PERRL, extraocular movements intact, sclera anicteric, conjunctiva clear. No ptosis. ENT: Ears normal, nares patent, oropharynx clear without exudates, moist mucous membranes. NECK: Trachea midline, full range of motion, supple. LUNGS: Breath sounds equal, clear to auscultation bilaterally, no wheezes, no crackles, no accessory muscle use. HEART: Regular rate and rhythm, S1, S2 without murmur, rub or gallop. ABDOMEN: Soft, nontender, nondistended, normoactive bowel sounds, no guarding, no rebound, no hepatosplenomegaly, no masses. EXTREMITIES: 2+ pulses, warm, well-perfused, no edema. NEUROLOGICAL: Cranial nerves II through XII grossly intact. Normal speech, gait not observed. PSYCH: Normal mood, normal affect. SKIN: Warm, dry, normal turgor, no rashes or lesions noted ASSESSMENT/PLAN: Problem List - Problems (1) Diarrhea Code(s): R19.7 - DIARRHEA, UNSPECIFIED Qualifiers: Diarrhea type: unspecified type Qualified Code(s): R19.7 - Diarrhea, unspecified (2) Nausea and vomiting Code(s): R11.2 - NAUSEA WITH VOMITING, UNSPECIFIED Qualifiers: Vomiting type: unspecified Vomiting Intractability: non-intractable Qualified Code(s): R11.2 - Nausea with vomiting, unspecified (3) Hypokalemia Code(s): E87.6 - HYPOKALEMIA (4) Renal transplant recipient Code(s): Z94.0 - KIDNEY TRANSPLANT STATUS (5) SCOOTER (acute kidney injury) Code(s): N17.9 - ACUTE KIDNEY FAILURE, UNSPECIFIED
[2018-08-20] MEDS ORDERED: LACTATED RINGERS SOLUTION 1,000 ML/1,000 ML INFUS.BAG IV SCH (17:00)
--- NOTE | 2018-08-20 17:03 | PN ---
Progress Note (short form) - Note Progress Note: Renal follow up for SCOOTER with Renal transplant Pt seen and examined at the bedside reports improvement in diarrhea today abd pain is resolved no N/V making more urine today on IVF Vital Signs Temperature 98.0 F 08/20/18 14:50 Pulse Rate 89 08/20/18 14:50 Respiratory Rate 20 08/20/18 14:50 Blood Pressure 142/87 08/20/18 14:50 O2 Sat by Pulse Oximetry (%) 100 08/20/18 09:00 Intake & Output 08/17/18 08/18/18 08/19/18 08/20/18 23:59 23:59 23:59 23:59 Intake Total 1795 2325 530 Output Total 120 Balance 1675 2325 530 Weight 73.936 kg NAD awake and alert dry MM Neck supple RRR CTA mild tenderness in and No LE edema CBC, BMP 08/20/18 06:45 08/20/18 06:45 Current Medications Acetaminophen (Tylenol -) 650 mg PO Q6H PRN PRN Reason: FEVER Last Admin: 08/19/18 01:30 Dose: 650 mg Cholecalciferol (Vitamin D3 -) 1,000 unit PO HS [facility] Last Admin: 08/19/18 22:26 Dose: 1,000 unit Fenofibric Acid (Trilipix -) 45 mg PO HS [facility] Last Admin: 08/19/18 22:27 Dose: 45 mg Heparin Sodium (Porcine) (Heparin -) 5,000 unit SQ TID [facility] Last Admin: 08/20/18 14:41 Dose: 5,000 unit Metronidazole (Flagyl 500mg Premixed Ivpb -) 500 mg in 100 mls @ 100 mls/hr IVPB Q8H-IV [facility] Last Admin: 08/20/18 09:53 Dose: 100 mls/hr Sodium Chloride (Normal Saline -) 1,000 mls @ 250 mls/hr IV ASDIR [facility] Stop: 08/20/18 19:39 Last Admin: 08/19/18 05:39 Dose: 250 mls/hr Lactated Ringer's (Lactated Ringers Solution) 1,000 ml in 1,000 mls @ 333 mls/ hr IV ASDIR [facility] Stop: 08/20/18 20:01 Lactated Ringer's (Lactated Ringers Solution) 1,000 ml in 1,000 mls @ 150 mls/ hr IV ASDIR [facility] Insulin Aspart (Novolog Vial Sliding Scale -) 1 vial SQ ACHS [facility]; Protocol Last Admin: 08/20/18 12:34 Dose: 2 units Mycophenolate Mofetil (Cellcept -) 500 mg PO BID [facility] Last Admin: 08/20/18 09:54 Dose: 500 mg Pantoprazole Sodium (Protonix Iv) 40 mg IVPUSH DAILY [facility] Last Admin: 08/20/18 09:53 Dose: 40 mg Prednisone (Deltasone -) 5 mg PO DAILY [facility] Last Admin: 08/20/18 09:53 Dose: 5 mg Sodium Bicarbonate (Sodium Bicarbonate -) 1,300 mg PO BID [facility] Last Admin: 08/20/18 09:53 Dose: 1,300 mg Tacrolimus (Prograf) 0.5 mg PO BID [facility] Last Admin: 08/20/18 09:54 Dose: 0.5 mg 33 year old gentleman with hx of ESRD s/p Renal transplant x 2, Hypertension presented with complaints of Abd pain and diarrhea with SCOOTER. #SCOOTER in Renal transplant likely related to overt volume depletion vs acute rejection #Renal transplant on immunosuppression #Diarrhea (non anion gap) #Metabolic acidosis #Hypokalemia pt noted to have fluctuating Cr values with corresponds to continued volume loss from diarrhea will intensify IVF resuscitation Continue sodium bicarb 1300mg BID check Labs twice daily continue prograf, cellcept and prednisone continue abx as per primary team check urine studies for feNa, and UPCR if renal function continues to decline will contact primary unloading checker at [facility] again and request transfer. Thank you Nicho Sampson DO
[2018-08-20 20:30] LABS: ANION GAP 11 MMOL/L (8-16); BLOOD UREA NITROGEN 58 mg/dL (7-18); CHLORIDE 103 mmol/L (98-107); CO2 16 mmol/L (21-32); CREATININE 3.9 mg/dL (0.55-1.3); GLUCOSE,RANDOM 244 mg/dL (74-106); POTASSIUM 3.2 mmol/L (3.5-5.1); SODIUM 130 mmol/L (136-145)
[2018-08-20] MEDS ORDERED: POTASSIUM CHLORIDE TABS 20 MEQ TABLET.ER (FP) PO STA (21:20)
[2018-08-20] MEDS: FENOFIBRIC ACID 45 MG CAP PO SCH ×2 (21:44→21:54)
[2018-08-20] MEDS: CHOLECALCIFEROL (VITAMIN D3) 1,000 UNIT TABLET (FP) PO SCH (21:44)
[2018-08-21] MEDS ORDERED: RANITIDINE HCL 150 MG TABLET (FP) PO ONE (00:26)
[2018-08-21] MEDS: LACTATED RINGERS SOLUTION 1,000 ML/1,000 ML INFUS.BAG IV SCH ×4 (04:29→22:35)
[2018-08-21] MEDS: INSULIN SLIDING SCALE (NOVOLOG) 1 VIAL SQ SCH ×4 (06:15→22:38)
[2018-08-21] MEDS: HEPARIN NA (PORCINE) 5,000 UNITS/ML 1ML VIAL SQ SCH ×3 (06:16→22:37)
[2018-08-21 07:44] LABS: BASO % 0.2 % (0-2.0); EOS % 0.1 % (0-4.5); HEMATOCRIT 31.9 % (35.4-49); HEMOGLOBIN 11.4 GM/dL (11.7-16.9); LYMPH % 11.3 % (8-40); MCH 27.4 pg (25.7-33.7); MCHC 35.6 g/dl (32.0-35.9); MEAN CELL VOLUME 77.1 fl (80-96); MEAN PLT VOLUME 8.2 fl (7.5-11.1); MONO % 12.1 % (3.8-10.2); NEUT % 76.3 % (42.8-82.8); PLATELET COUNT 172 K/MM3 (134-434); RBC 4.14 M/mm3 (4.00-5.60); RDW 14.3 % (11.9-15.9); WHITE BLOOD COUNT 4.1 K/mm3 (4.0-10.0)
[2018-08-21 08:36] LABS: ALBUMIN 2.8 g/dl (3.4-5.0); ALK PHOS 52 U/L (45-117); ANION GAP 9 MMOL/L (8-16); BILIRUBIN,TOTAL 0.4 mg/dL (0.2-1); BLOOD UREA NITROGEN 55 mg/dL (7-18); CALCIUM 8.2 mg/dL (8.5-10.1); CHLORIDE 108 mmol/L (98-107); CO2 18 mmol/L (21-32); CREATININE 3.3 mg/dL (0.55-1.3); GLUCOSE,RANDOM 162 mg/dL (74-106); MAGNESIUM 1.9 mg/dL (1.8-2.4); PHOSPHOROUS 1.8 mg/dL (2.5-4.9); SGOT/AST 25 U/L (15-37); SGPT/ALT 31 U/L (13-61); SODIUM 135 mmol/L (136-145); TOT PROT 5.6 g/dl (6.4-8.2)
[2018-08-21] MEDS ORDERED: amLODIPine BESYLATE 5 MG TABLET (FP) PO SCH (11:15)
[2018-08-21] MEDS ORDERED: PT OWN MED DRAWER 7, Y5N ONE (11:34)
[2018-08-21] MEDS: predniSONE 5 MG TABLET (UD) PO SCH (11:48)
[2018-08-21] MEDS: PANTOPRAZOLE SODIUM 40 MG VIAL IVPUSH SCH (11:49)
[2018-08-21] MEDS: POTASSIUM CHLORIDE TABS 20 MEQ TABLET.ER (FP) PO SCH ×2 (11:49→13:38)
[2018-08-21] MEDS: SODIUM BICARBONATE 650 MG TABLET PO SCH ×2 (11:49→22:36)
[2018-08-21] MEDS: MYCOPHENOLATE MOFETIL 500 MG TABLET PO SCH ×2 (11:51→22:39)
[2018-08-21] MEDS: TACROLIMUS 0.5 MG CAPSULE PO SCH ×2 (11:53→22:39)
--- NOTE | 2018-08-21 12:11 | PN ---
Progress Note (short form) - Note Progress Note: Renal follow up for SCOOTER with Renal transplant Pt seen and examined at the bedside feels much better no further diarrrhea making a good amount of urine no abd pain, sob, cp no fever or chills Vital Signs Temperature 98.3 F 08/21/18 09:23 Pulse Rate 74 08/21/18 11:38 Respiratory Rate 08/21/18 11:38 Blood Pressure 147/85 08/21/18 11:38 O2 Sat by Pulse Oximetry (%) 97 08/20/18 21:00 Intake & Output 08/18/18 08/19/18 08/20/18 08/21/18 23:59 23:59 23:59 23:59 Intake Total 1795 2325 3838 1175 Output Total 120 600 Balance 1675 2325 3238 1175 Weight 73.936 kg NAD awake and alert dry MM Neck supple RRR CTA mild tenderness in and No LE edema CBC, BMP 08/21/18 06:15 08/21/18 06:15 Current Medications Acetaminophen (Tylenol -) 650 mg PO Q6H PRN PRN Reason: FEVER Last Admin: 08/19/18 01:30 Dose: 650 mg Amlodipine Besylate (Norvasc -) 5 mg PO DAILY [facility] Last Admin: 08/21/18 11:46 Dose: Not Given Cholecalciferol (Vitamin D3 -) 1,000 unit PO HS [facility] Last Admin: 08/20/18 21:44 Dose: 1,000 unit Fenofibric Acid (Trilipix -) 45 mg PO HS [facility] Last Admin: 08/20/18 21:54 Dose: Not Given Heparin Sodium (Porcine) (Heparin -) 5,000 unit SQ TID [facility] Last Admin: 08/21/18 06:16 Dose: 5,000 unit Metronidazole (Flagyl 500mg Premixed Ivpb -) 500 mg in 100 mls @ 100 mls/hr IVPB Q8H-IV [facility] Last Admin: 08/21/18 11:50 Dose: 100 mls/hr Lactated Ringer's (Lactated Ringers Solution) 1,000 ml in 1,000 mls @ 150 mls/ hr IV ASDIR [facility] Last Admin: 08/21/18 04:29 Dose: 150 mls/hr Insulin Aspart (Novolog Vial Sliding Scale -) 1 vial SQ ACHS [facility]; Protocol Last Admin: 08/21/18 12:04 Dose: Not Given Mycophenolate Mofetil (Cellcept -) 500 mg PO BID [facility] Last Admin: 08/21/18 11:51 Dose: 500 mg Pantoprazole Sodium (Protonix Iv) 40 mg IVPUSH DAILY [facility] Last Admin: 08/21/18 11:49 Dose: 40 mg Potassium Chloride (K-Dur -) 40 meq PO Q1H [facility] Stop: 08/21/18 12:16 Last Admin: 08/21/18 11:49 Dose: 40 meq Prednisone (Deltasone -) 5 mg PO DAILY [facility] Last Admin: 08/21/18 11:48 Dose: 5 mg Sodium Bicarbonate (Sodium Bicarbonate -) 1,300 mg PO BID [facility] Last Admin: 08/21/18 11:49 Dose: 1,300 mg Tacrolimus (Prograf) 0.5 mg PO BID [facility] Last Admin: 08/21/18 11:53 Dose: 0.5 mg 33 year old gentleman with hx of ESRD s/p Renal transplant x 2, Hypertension presented with complaints of Abd pain and diarrhea with SCOOTER. #SCOOTER in Renal transplant likely related to overt volume depletion vs acute rejection #Renal transplant on immunosuppression #Diarrhea (non anion gap) #Metabolic acidosis #Hypokalemia Renal function improving with IVF continue LR at 150cc per hour urine studies consistent with volume depletion UPCR ~0.5 Continue prograf, cellcept and prednisone supplement K restart coreg for hypertension continue sodium bicarbonate Thank you Nicho Sampson DO
[2018-08-21] MEDS: CARVEDILOL 25 MG TABLET (FP) PO SCH ×2 (13:37→22:39)
--- NOTE | 2018-08-21 13:53 | PN ---
Physical Exam: SUBJECTIVE: Patient seen and examined at bedside. No acute events overnight. Pt denies f/c, n/v, chest pain, sob, abd pain, urinary/bowel symptoms. OBJECTIVE: Vital Signs Temperature 98.3 F 08/21/18 09:23 Pulse Rate 74 08/21/18 11:38 Respiratory Rate 08/21/18 11:38 Blood Pressure 147/85 08/21/18 11:38 O2 Sat by Pulse Oximetry (%) 97 08/20/18 21:00 GENERAL: AAOx3. Pleasant. HEENT: AT/NC. EOMI. KIRSTY. Moist mucus membranes. NECK: Trachea midline, full range of motion, supple. LUNGS: CTA B/L. No wheezes/crackles noted. HEART: RRR. Normal S1, S2. No wheezes noted. ABDOMEN: Soft ND. Mild TTP. +BS in all 4Q's. EXTREMITIES: 2+ pulses, warm, well-perfused, no edema. NEUROLOGICAL: Cranial nerves II through XII grossly intact. Normal speech, gait not observed. PSYCH: Normal mood, normal affect. SKIN: Warm, dry, normal turgor, no rashes or lesions noted CBC, BMP 08/21/18 06:15 08/21/18 06:15 Active Medications Acetaminophen (Tylenol -) 650 mg PO Q6H PRN PRN Reason: FEVER Last Admin: 08/19/18 01:30 Dose: 650 mg Carvedilol (Coreg -) 25 mg PO BID [facility] Last Admin: 08/21/18 13:37 Dose: 25 mg Cholecalciferol (Vitamin D3 -) 1,000 unit PO HS [facility] Last Admin: 08/20/18 21:44 Dose: 1,000 unit Fenofibric Acid (Trilipix -) 45 mg PO HS [facility] Last Admin: 08/20/18 21:54 Dose: Not Given Heparin Sodium (Porcine) (Heparin -) 5,000 unit SQ TID [facility] Last Admin: 08/21/18 13:39 Dose: 5,000 unit Lactated Ringer's (Lactated Ringers Solution) 1,000 ml in 1,000 mls @ 150 mls/ hr IV ASDIR [facility] Last Admin: 08/21/18 04:29 Dose: 150 mls/hr Insulin Aspart (Novolog Vial Sliding Scale -) 1 vial SQ [facility]; Protocol Last Admin: 08/21/18 12:04 Dose: Not Given Levofloxacin (Levaquin) 750 mg PO DAILY [facility] Mycophenolate Mofetil (Cellcept -) 500 mg PO BID [facility] Last Admin: 08/21/18 11:51 Dose: 500 mg Pantoprazole Sodium (Protonix Iv) 40 mg IVPUSH DAILY [facility] Last Admin: 08/21/18 11:49 Dose: 40 mg Prednisone (Deltasone -) 5 mg PO DAILY [facility] Last Admin: 08/21/18 11:48 Dose: 5 mg Sodium Bicarbonate (Sodium Bicarbonate -) 1,300 mg PO BID [facility] Last Admin: 08/21/18 11:49 Dose: 1,300 mg Tacrolimus (Prograf) 0.5 mg PO BID [facility] Last Admin: 08/21/18 11:53 Dose: 0.5 mg CONSULTS: Nephro- Dr. Sampson IMAGING: * Abdominal/Pelvis CT: 1. Diffuse fatty infiltration of the liver. 2. Atrophic [place] kidneys with hyperdense left renal cyst. 3. Atrophic right renal transplant within the right hemipelvis. 4. Morphologically normal left renal transplant within the left hemipelvis. 5. No evidence of acute pathology within the abdomen or pelvis. Please see above discussion. ASSESSMENT/PLAN: 33M with significant past medical history of Hypertension, ESRD s/p Kidney transplant twice () on prednisone and immunosuppresants presented to the ED with complaints of diarrhea, nausea, and vomiting. #Severe sepsis likely secondary to gastroenteritis; Resolved. -Most likely viral etiology Stool WBC -Ve C diff neg -BCx neg x72h, Stool gram stain neg; Stool cx and Cdiff pending -Levaquin 750 mg PO QD (started 08/21; previously on Flagyl) #ESRD s/p Kidney transplant twice () On prednisone and immunosuppressants -Seen by his spd tech last week, no change in current medications. Last known Cr by pt's nephro usually wnl. -Cont home meds: Fenofibrate 48 mg HS, Mofetil 1000 mg BID, Tacrolimus 0.5 mg BID and Prednisone 5 mg Daily, Sodium bicarb 1300mg BID -Per nephro, cont to give IVf until Cr stabilizes to ~2.5; SCOOTER is likely due to volume depletion. -If renal function continues to decline will contact primary spd tech at [facility] again and request transfer. # Polycythemia -H/H: 11.4/31.9 could be from dehydration. Likely to improve with IV fluids. # Hypertension-was hypotensive on admission -Likely from dehydration and gastroenteritis -Continue Amlodipine 5mg BID # FEN -LR @ 150 mls/hr -Electrolytes WNL -Renal diet # Prophylaxis -For DVT: On Heparin 5000 IU sq TID -For GI: IV Protonix 40mg Daily # Dispo: -cont to Med/Surg -full code Visit type - Emergency Visit Emergency Visit: Yes ED Registration Date: 08/18/18 Care time: The patient presented to the Emergency Department on the above date and was hospitalized for further evaluation of their emergent condition. - New Patient This patient is new to me today: No - Critical Care Critical Care patient: No
[2018-08-21] MEDS ORDERED: levoFLOXacin 750 MG TABLET PO SCH (14:45)
--- NOTE | 2018-08-21 14:58 | PN ---
Teaching Attending Note Name of Resident: Ana Cristina Wright ATTENDING PHYSICIAN STATEMENT I saw and evaluated the patient. I reviewed the resident's note and discussed the case with the resident. I agree with the resident's findings and plan as documented. SUBJECTIVE: No fever or chills, no abd pain. diarrhea stopped yesterday. No SOB . OBJECTIVE: NAD CV: RRR, no MRG Lungs: CTAB Abd: soft, NT, ND , NL BS . Ext : no edema ASSESSMENT AND PLAN: 33 y/o man with h/o ESRD s/p transplant, HTN, who presented with diarrhea and was found to have SCOOTER . 1- Diarrhea: resolved. last watery BM yesterday. stool cx showing G- bacilli on prelim, but c diff neg. - hold off Abx as sx resolved - follow final stool cx. - cont hydration 2- Metabolic non AG acidosis : due to diarrhea and renal failure cont sodium bicarb 3- SCOOTER : due to volume depletion. D/W Dr. Sampson, since cr is improving with IVF , rejection is unlikely . - cont IVF . no signs of fluid overload - cont tacrulimus, prednisone and mycophenolate 4- hyperglycemia. no h/o DM in records. but sugar was 303 on admisson. - check A1c - cont SSI for now. - will confirm with patient dispo : HLOC. d/w renal ,hold off Tx for now.
[2018-08-21] MEDS ORDERED: INSULIN (NOVOLOG) ASPART 100 UNITS/ML 10ML VIAL ONE ×2 (18:02→21:46)
[2018-08-21] MEDS: CHOLECALCIFEROL (VITAMIN D3) 1,000 UNIT TABLET (FP) PO SCH (22:36)
[2018-08-21] MEDS: FENOFIBRIC ACID 45 MG CAP PO SCH (22:39)
[2018-08-22] MEDS: HEPARIN NA (PORCINE) 5,000 UNITS/ML 1ML VIAL SQ SCH (06:34)
[2018-08-22] MEDS: INSULIN SLIDING SCALE (NOVOLOG) 1 VIAL SQ SCH ×2 (06:55→11:33)
[2018-08-22 07:27] LABS: HEMATOCRIT 33.3 % (35.4-49); HEMOGLOBIN 11.6 GM/dL (11.7-16.9); MCH 27.3 pg (25.7-33.7); MCHC 34.7 g/dl (32.0-35.9); MEAN CELL VOLUME 78.5 fl (80-96); PLATELET COUNT 198 K/MM3 (134-434); RBC 4.24 M/mm3 (4.00-5.60); RDW 14.4 % (11.9-15.9); WHITE BLOOD COUNT 3.8 K/mm3 (4.0-10.0)
[2018-08-22 07:58] LABS: ANION GAP 8 MMOL/L (8-16); BLOOD UREA NITROGEN 37 mg/dL (7-18); CALCIUM 8.2 mg/dL (8.5-10.1); CHLORIDE 112 mmol/L (98-107); CO2 19 mmol/L (21-32); GLUCOSE,RANDOM 137 mg/dL (74-106); MAGNESIUM 1.5 mg/dL (1.8-2.4); PHOSPHOROUS 1.8 mg/dL (2.5-4.9); POTASSIUM 3.6 mmol/L (3.5-5.1); SODIUM 140 mmol/L (136-145)
[2018-08-22] MEDS ORDERED: NAPH,MB-DB/K PH,MBDB POWDER PACKET PO ONE (09:00)
[2018-08-22] MEDS ORDERED: MAGNESIUM OXIDE 400 MG TABLET (FP) PO ONE (09:00)
[2018-08-22] MEDS ORDERED: PANTOPRAZOLE 40 MG TABLET (FP) PO SCH (10:00)
[2018-08-22] MEDS: SODIUM BICARBONATE 650 MG TABLET PO SCH (10:38)
[2018-08-22] MEDS: CARVEDILOL 25 MG TABLET (FP) PO SCH (10:38)
[2018-08-22] MEDS: predniSONE 5 MG TABLET (UD) PO SCH (10:38)
[2018-08-22] MEDS: TACROLIMUS 0.5 MG CAPSULE PO SCH (10:40)
[2018-08-22] MEDS: MYCOPHENOLATE MOFETIL 500 MG TABLET PO SCH (10:40)
[2018-08-22 11:02] VITALS: BP 152/90; PULSE 70; TEMP 98.2
--- NOTE | 2018-08-22 12:15 | PN ---
Teaching Attending Note Name of Resident: Ana Cristina Wright ATTENDING PHYSICIAN STATEMENT I saw and evaluated the patient. I reviewed the resident's note and discussed the case with the resident. I agree with the resident's findings and plan as documented. SUBJECTIVE: no fever or chills . No abd pain, no CP or SOB . OBJECTIVE: NAD CV: RRR, no MRG Lungs: CTAB Abd: soft, NT, ND, NL BS . Ext : no edema ASSESSMENT AND PLAN: 33 y/o man with h/o ESRD s/p transplant, HTN, who presented with diarrhea and was found to have SCOOTER . 1- Diarrhea: resolved. last watery BM was 2 days ago.stool cx with Salmonella species - NO need to treat as asymptomatic now 2- Metabolic non AG acidosis : due to diarrhea and renal failure . Bicarb cont to improve cont sodium bicarb 3- SCOOTER : much improved. Cr 2 today - cont tacrulimus, prednisone and mycophenolate - corey d/w renal need for IV vs PO hydration at this point . 4- DM . with A1c of 9.5 - patient was on basglar and metformin at home - will resume insulin and will cont to hold metformin until his renal function is NL again. Dispo : will d/w renal and dc either today or tomorrow
--- NOTE | 2018-08-22 16:59 | DS ---
Physical Exam: SUBJECTIVE: Patient seen and examined. No acute events overnight. OBJECTIVE: Vital Signs Period Temp Pulse Resp BP Sys/Piper Pulse Ox Last 24 Hr 97.5 F-98.2 F 69-77 17-20 138-152/72-90 97-100 PHYSICAL EXAM GENERAL: AAOx3. Pleasant. HEENT: AT/NC. EOMI. KIRSTY. Moist mucus membranes. NECK: Trachea midline, full range of motion, supple. LUNGS: CTA B/L. No wheezes/crackles noted. HEART: RRR. Normal S1, S2. No wheezes noted. ABDOMEN: Soft ND. Mild TTP. +BS in all 4Q's. EXTREMITIES: 2+ pulses, warm, well-perfused, no edema. NEUROLOGICAL: Cranial nerves II through XII grossly intact. Normal speech, gait not observed. PSYCH: Normal mood, normal affect. SKIN: Warm, dry, normal turgor, no rashes or lesions noted LABS Laboratory Results - last 24 hr 08/21/18 08/21/18 08/22/18 17:12 22:33 06:00 WBC RBC Hgb Hct MCV MCH MCHC RDW Plt Count MPV Sodium 140 Potassium 3.6 Chloride 112 H Carbon Dioxide 19 L Anion Gap 8 BUN 37 H Creatinine 2.0 H Creat Clearance w eGFR 38.21 POC Glucometer 231 225 Random Glucose 137 H Hemoglobin A1c % Calcium 8.2 L Phosphorus 1.8 L Magnesium 1.5 L 08/22/18 08/22/18 08/22/18 06:00 06:00 06:45 WBC 3.8 L RBC 4.24 Hgb 11.6 L Hct 33.3 L MCV 78.5 L MCH 27.3 MCHC 34.7 RDW 14.4 Plt Count 198 MPV 8.0 Sodium Potassium Chloride Carbon Dioxide Anion Gap BUN Creatinine Creat Clearance w eGFR POC Glucometer 142 Random Glucose Hemoglobin A1c % 9.5 H Calcium Phosphorus Magnesium 08/22/18 11:32 WBC RBC Hgb Hct MCV MCH MCHC RDW Plt Count MPV Sodium Potassium Chloride Carbon Dioxide Anion Gap BUN Creatinine Creat Clearance w eGFR POC Glucometer 170 Random Glucose Hemoglobin A1c % Calcium Phosphorus Magnesium HOSPITAL COURSE: Date of Admission:08/18/18 IMAGING: * Abdominal/Pelvis CT: 1. Diffuse fatty infiltration of the liver. 2. Atrophic [place] kidneys with hyperdense left renal cyst. 3. Atrophic right renal transplant within the right hemipelvis. 4. Morphologically normal left renal transplant within the left hemipelvis. 5. No evidence of acute pathology within the abdomen or pelvis. Please see above discussion. 33M with significant past medical history of Hypertension, ESRD s/p Kidney transplant twice (2006/2015) on prednisone and immunosuppressants presented to the ED with complaints of diarrhea, nausea, and vomiting, admitted for severe sepsis 2/2 gastroenteritis. Pt was started on Levaquin and was monitored overnight. C.diff was neg, and stool culture was + for Salmonella, however throughout hospital stay, pt's GI symptoms improved. Abx was discontinued. Blood cultures and stool gram stain were also neg. Pt's hospital stay was complicated by worsening BUN/Cr to 60/4.3. He was seen and evaluated by nephro and subsequently given aggressive IV hydration as pt's worsening renal fxn was likely due to volume depletion. Pt continued to be monitored with IV hydration and his kidney function eventually improved. He was discharged home with recommendation to follow up with his PCP and sales and merchandising representative, as well as given instructions to stop taking HCTZ and Metformin due to nephrotoxicity. Date of Discharge: 08/22/18 Minutes to complete discharge: 40 Discharge Summary Reason For Visit: SEPSIS Condition: Improved - Instructions Diet, Activity, Other Instructions: You were admitted to the hospital for complaints of nausea, vomiting, and diarrhea. In the hospital, you were found to have gastroenteritis and given IV antibiotics. Throughout your hospital stay, your symptoms improved. Additionally , your labs showed abnormal kidney function after which you were given IV fluids. You were monitored until your kidney function improved. You are being discharged home. MEDICATIONS We have made the following changes to your medication(s): Please stop taking Hydrochlorothiazide for now until you get your blood work repeated and advised by your sales and merchandising representative . Please stop taking Metformin for now due to renal failure . You will need to follow up with your primary care physician to discuss when to restart this medication. Please start taking Sodium Bicarbonate 650 mg twice a day, and this will be addressed with your sales and merchandising representative after repeat blood work. You may continue taking the rest of your home medications as directed. FOLLOW UP Please follow up with your primary care physician within 1 week. Please follow up with your sales and merchandising representative, Dr. Javon Olsen, for repeat BMP to check your kidney function. If you experience persistent nausea, vomiting, diarrhea, worsening chest pain, shortness of breath, abdominal pain, please proceed to your nearest emergency room immediately. blood work ( BMP) tomorrow Referrals: Javon Olsen MD [Other] - 08/23/18 Disposition: HOME - Home Medications Comprehensive Discharge Medication List: Ambulatory Orders Carvedilol 25 mg PO BID 04/26/17 Cholecalciferol (Vitamin D3) [Vitamin D3] 1,000 unit PO HS 04/26/17 Prednisone 5 mg PO DAILY 04/26/17 Mycophenolate Mofetil [Cellcept -] 1,000 mg PO BID tablet 08/19/18 Tacrolimus Anhydrous [Prograf] 0.5 mg PO BID capsule 08/19/18 Insulin Glargine,Hum.rec.anlog [Basaglar Kwikpen U-100] 18 units DAILY 08/21/18 Miscellaneous Medical Supply [Outpatient Order] 1 each ASDIR #1 misc Sodium Bicarbonate - 650 mg PO BID #60 tablet 08/22/18 This patient is new to me today: No Emergency Visit: Yes ED Registration Date: 08/18/18 Care time: The patient presented to the Emergency Department on the above date and was hospitalized for further evaluation of their emergent condition. Critical Care patient: No - Discharge Referral Referred to [facility] No
== END 2018-08-22 14:13 | disposition home or self-care (01) | DRG 872 ==
LOC: JER 07:25 → JERBED 11:03 → J5S 14:49
PROVIDERS: ADMIT Internal Medicine; ATTEND Internal Medicine
DX: A41.9 Sepsis, unspecified organism (principal); Z94.0 Kidney transplant status; E87.2 Acidosis; N17.9 Acute kidney failure, unspecified; A02.9 Salmonella infection, unspecified; R65.20 Severe sepsis without septic shock; A08.4 Viral intestinal infection, unspecified; E87.6 Hypokalemia; E86.0 Dehydration; I10 Essential (primary) hypertension; E11.9 Type 2 diabetes mellitus without complications; Z79.84 Long term (current) use of oral hypoglycemic drugs; D75.1 Secondary polycythemia; N28.1 Cyst of kidney, acquired; K76.0 Fatty (change of) liver, not elsewhere classified; I95.9 Hypotension, unspecified
CPT/HCPCS: 36415; 71045-TC-FY; 74176-TC; 76776-TC; 80048; 80053; 80197; 81003; 81015; 82248; 82570; 82803; 82962; 83036; 83605; 83735; 84100; 84156; 84300; 84484; 84540; 85025; 85027; 85610; 85730; 87040; 87045; 87046; 87186; 87205; 87324; 87449; 87804; 93005; 93010; 99283-25; J0131; J1644; J7030; J7517